=== PATIENT | female | born 1950 | race Caucasian/White ===

== ENCOUNTER 2019-07-07 06:53 | Emergency (ER) | payer MEDICARE, BC ==
[2019-07-07] MEDS ORDERED: Acetaminophen TAB* 325 MG PO ONE (07:27)
--- OUTSIDE RECORDS SUMMARY | 2019-07-07 07:30 | XMS REPORT | Summary of Care ---
:1950 Author Organization [facility] Address [address] [place] [address] Care Team Providers Name Role Phone Mary Berrios DO Primary Care Provider Julio Edmondson MD Unavailable Cristel Vasquez OD Unavailable Reason for Visit Reason Comments Transitional Care Management Encounter Details Date Type Department Care Team Description 06/16/2019 Office Visit Korey Flores Natalie, Chest pain, unspecified type (Primary Dx); Practice PA-C Urinary tract infection without hematuria, site unspecified; [address] [facility] [facility] [place] [address] [place] [address] [phone] Allergies Active Allergy Reactions Severity Noted Date Comments Acetasol Rash 08/28/2009 Alendronate Sodium Unknown Reaction 01/16/2011 Augmentin GI Reaction Medium 08/20/2010 diarrhea Calcium 01/31/2008 INTOL Captopril 01/31/2008 INTOL- CAPOTEN Ciprofloxacin Hcl 01/31/2008 ITCHING Codeine 01/31/2008 Jcppdufagt-Xneewpe-Mau-Hc 01/31/2008 SEDATION Eggs Or Egg-Derived GI Reaction 11/06/2013 Products Raloxifene Hydrochloride 01/31/2008 INTOL Food 01/31/2008 EGGS Fosamax 01/31/2008 Keflex Dermatologic Reaction 02/07/2013 rash and hives Latex Rash 11/06/2013 Wdfalyli-Dsflryglrs-Jsnnnpy Hives 01/31/2008 in Oxaprozin 01/31/2008 INTOL-daypro Premarin 01/31/2008 INTOL Sectral Unknown Reaction 01/16/2011 Sulfa Antibiotics 01/31/2008 documented as of this encounter (statuses as of 06/16/2019) Medications Medication Sig Dispensed Refills Start Date End Date Status NEURONTIN 300 MG Oral Take 300 mg by 0 Active Cap mouth HSX1. acetaminophen (TYLENOL Take 2 Tabs by 90 3 02/22/2009 Active ARTHRITIS PAIN) 650 MG mouth TWICE Oral Tab CRIndications: DAILY. Acute pharyngitis Ultra B-100 Complex Take 1 Tab by 50 5 04/02/2009 Active Oral Tab mouth DAILY. Multiple Take by mouth. 0 Active Vitamins-Minerals (MULTI FOR HER PO) Interferon Beta-1b Inject beneath 0 Active (BETASERON SC) the skin. diphenhydrAMINE Take 1 Cap by 56 Cap 0 05/02/2015 Active (BENADRYL) 25 MG Oral mouth EVERY SIX Cap HOURS NEEDED (itching). diazepam (VALIUM) 2 MG Take 2 mg by 0 Active Oral Tab mouth EVERY SIX HOURS NEEDED for anxiety. Glatiramer Acetate Inject beneath 0 Active (COPAXONE SC) the skin. oxybutynin (DITROPAN) 5 Take 1 Tab by 60 Tab 11 08/04/2018 Active MG Oral Tab mouth TWICE DAILY. SUMAtriptan Succinate Inject 6 mg 1 Syringe 3 12/22/2018 Active Refill 6 MG/0.5ML beneath the Subcutaneous Solution skin NEEDED CartridgeIndications: (migraine). Migraine without aura and without status migrainosus, not intractable bisoprolol-hydrochlorot Take 1 Tab by 90 Tab 1 01/23/2019 Active hiazide (ZIAC) 2.5-6.25 mouth DAILY. MG Oral TabIndications: Essential hypertension potassium chloride Take 1 Cap by 60 Cap 5 02/10/2019 Active (MICRO-K) 10 MEQ Oral mouth DAILY. Cap CR CLARITIN-D 24 HOUR Take 1 Tab by 30 Tab 5 05/17/2019 Active 10-240 MG Oral TABLET mouth DAILY. SR 24 HR cefuroxime (CEFTIN) 250 Take 1 Tab by 28 Tab 0 06/13/2019 06/18/2019 Active MG Oral TabIndications: mouth TWICE Urinary tract infection DAILY for 5 with hematuria, site days. unspecified documented as of this encounter (statuses as of 06/16/2019) Active Problems Problem Noted Date Dry eye syndrome of bilateral lacrimal glands 03/20/2019 Mixed type age-related cataract, both eyes 03/16/2017 Posterior vitreous detachment of both eyes 03/16/2017 Astigmatism of both eyes with presbyopia 03/16/2017 Multiple sclerosis 03/16/2017 Lattice degeneration of both retinas 03/16/2017 Migraine without aura and without status migrainosus, not intractable 2016 Essential hypertension 08/14/2015 Frequency of urination and polyuria 11/06/2013 Right leg pain 03/16/2013 Aortic regurgitation 09/15/2012 Overview: Mild, echo 09/12 BMI 32.0-32.9,adult 07/20/2012 Osteopenia 02/22/2009 Diverticulosis 02/27/2008 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 \\ Irritable bladder HBP (high blood pressure) MS (multiple sclerosis) Allergic rhinitis Renal insufficiency documented as of this encounter (statuses as of 06/16/2019) Resolved Problems Problem Noted Date Resolved Date Hematuria, Unspecified 11/07/2007 02/27/2008 Personal history of colonic polyps 03/31/2007 02/27/2008 Diverticulitis of colon with hemorrhage 02/27/2008 documented as of this encounter (statuses as of 06/16/2019) Immunizations Name Administration Dates Next Due PNEUMOCOCCAL POLYSACCHARIDE VACCINE 05/21/2019 TDAP Vaccine 03/04/2010 TETANUS & DIPHTHERIA TOXOID (OVER 7 YRS) 08/07/1999 documented as of this encounter Social History Tobacco Use Types Packs/Day Years Used Date Never Smoker Smokeless Tobacco: Never Used Alcohol Use Drinks/Week oz/Week Comments No Social Isolation Answer Date Recorded In a typical week, how many times do you More than three times a week 2018 talk on the phone with family, friends, or neighbors? How often do you get together with friends More than three times a week 11/16 or relatives? How often do you attend sabianist or Never 11/16/2018 scientologist services? Do you belong to any clubs or No 11/16/2018 organizations such as sabianist groups, unions, fraternal or athletic groups, or school groups? How often do you attend meetings of the Never 11/16/2018 clubs or organizations you belong to? Are you now , , , 11/16/2018 , never or living with a partner? Physical Activity Answer Date Recorded On average, how many days per week do you engage in moderate to 0 days 2018 strenuous exercise (like walking fast, running, jogging, dancing, swimming, biking, or other activities that cause a light or heavy sweat)? On average, how many minutes do you engage in exercise at this 0 min 2018 level? Stress Answer Date Recorded Do you feel stress - tense, restless, nervous, or anxious, Not at all 2018 or unable to sleep at night because your mind is troubled all the time - these days? Education Answer Date Recorded What is the highest level of school you have Some college, no degree 2018 completed or the highest degree you have received? Financial Resource Strain Answer Date Recorded How hard is it for you to pay for the very basics like Not hard at all 2018 food, housing, medical care, and heating? Intimate Partner Violence Answer Date Recorded Within the last year, have you been afraid of your partner or No 11/16/2018 ex-partner? Within the last year, have you been humiliated or emotionally No 11/16/2018 abused in other ways by your partner or ex-partner? Within the last year, have you been kicked, hit, slapped, or No 11/16/2018 otherwise physically hurt by your partner or ex-partner? Within the last year, have you been raped or forced to have any No 11/16/2018 kind of sexual activity by your partner or ex-partner? Food Insecurity Answer Date Recorded Within the past 12 months, you worried that your food would Never true 2018 run out before you got money to buy more. Within the past 12 months, the food you bought just didn't Never true 2018 last and you didn't have money to get more. Transportation Needs Answer Date Recorded In the past 12 months, has lack of transportation kept you from Yes 2018 medical appointments or from getting medications? In the past 12 months, has lack of transportation kept you from Yes 2018 meetings, work, or getting things needed for daily living? Sex Assigned at Date Recorded Not on file Job Start Date Occupation Industry Not on file Not on file Not on file Travel History Travel Start Travel End No recent travel history available. documented as of this encounter Last Filed Vital Signs Vital Sign Reading Time Taken Comments Blood Pressure 142/80 06/16/2019 11:02 AM EDT Pulse 71 06/16/2019 11:02 AM EDT Temperature 36.2 06/16/2019 11:02 AM EDT C (97.1 F) Respiratory Rate - - Oxygen Saturation 99% 06/16/2019 11:02 AM EDT Inhaled Oxygen Concentration - - Weight 69.2 kg (152 lb 9.6 oz) 06/16/2019 11:02 AM EDT Height - - Body Mass Index 29.8 06/02/2018 2:20 PM EDT documented in this encounter Progress Notes Natalie Flores PA-C - 06/16/2019 10:50 AM EDT PATIENT: Anushka Norris : 1950 DATE OF SERVICE: 06/16/2019 CHIEF COMPLAINT: Chief Complaint Patient presents with Transitional Care Management Subjective HISTORY OF PRESENT ILLNESS: Anushka Norris is a 68-y.o. female. Patient presents to the office for hospital follow up. She is accompanied by her son. Patient presented to the ER 06/11/19 with chest pain that developed that day. It was all around her chest. Patient was admitted for serial troponin's and stress imaging, all which came back negative. Chest pain resolved. She was incidentally noted to have a UTI and discharged on Ceftin. She denies any symptoms. This is her 3 rd episode of chest pain or left shoulder pain in 1 month. No cause has been determined. Pain comes randomly. No triggers. No modifying factors. No associated symptoms. Pain selfresolves. Patient's son is requesting a MOLST form be completed today. TCM Statement. Review of the hospitalization: I am seeing for transition of care following hospitalization. The date of discharge was: 06/12/19 The discharge diagnosis was Chest pain. I reviewed the discharge summary, discharge instructions, and pertinent additional documentation obtained during hospitalization. I reconciled the medications. I also reviewed the Transition of Care documentation done by staff. The tests that were not available at the time of discharge were reviewed. Additional tests which are not yet available include: none Coordination of care. - I am satisfied that appropriate referrals are in place to deal with the problems identified during hospitalization, and that the patient has adequate community resources and support in place. - Additional testing related to hospitilization was requested today: yes See orders. I confirmed the patient's understanding of the diagnosis and plan of care. Specific education that was provided today: There are no Patient Instructions on file for this visit. 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 Diabetes Mother Heart Mother PACER Glaucoma Mother Cancer Father prostate Respiratory Father COPD Asthma Brother Allergies Brother Arthritis Brother Cancer Paternal Grandmother COLON Glaucoma Maternal Grandmother No Known Problems Son No Known Problems Brother Current Outpatient Medications Medication Sig acetaminophen (TYLENOL ARTHRITIS PAIN) 650 MG Oral Tab CR Take 2 Tabs by mouth TWICE DAILY. bisoprolol-hydrochlorothiazide (ZIAC) 2.5-6.25 MG Oral Tab Take 1 Tab by mouth DAILY. cefuroxime (CEFTIN) 250 MG Oral Tab Take 1 Tab by mouth TWICE DAILY for 5 days. CLARITIN-D 24 HOUR 10-240 MG Oral TABLET SR 24 HR Take 1 Tab by mouth DAILY. diazepam (VALIUM) 2 MG Oral Tab Take 2 mg by mouth EVERY SIX HOURS NEEDED for anxiety. diphenhydrAMINE (BENADRYL) 25 MG Oral Cap Take 1 Cap by mouth EVERY SIX HOURS NEEDED (itching). Glatiramer Acetate (COPAXONE SC) Inject beneath the skin. Interferon Beta-1b (BETASERON SC) Inject beneath the skin. Multiple Vitamins-Minerals (MULTI FOR HER PO) Take by mouth. NEURONTIN 300 MG Oral Cap Take 300 mg by mouth HSX1. oxybutynin (DITROPAN) 5 MG Oral Tab Take 1 Tab by mouth TWICE DAILY. potassium chloride (MICRO-K) 10 MEQ Oral Cap CR Take 1 Cap by mouth DAILY. SUMAtriptan Succinate Refill 6 MG/0.5ML Subcutaneous Solution Cartridge Inject 6 mg beneath the skin NEEDED (migraine). Ultra B-100 Complex Oral Tab Take 1 Tab by mouth DAILY. No current facility-administered medications for this visit. Allergies Allergen Reactions Augmentin GI Reaction diarrhea Acetasol Rash Alendronate Sodium Unknown Reaction Calcium INTOL Captopril INTOL- CAPOTEN Cipro Cystitis [Ciprofloxacin Hcl] ITCHING Codeine Cortisporin [Heryyovjtx-Lyhecvw-Ftp-Hc] SEDATION Eggs Or Egg-Derived Products GI Reaction Evista [Raloxifene Hydrochloride] INTOL Food EGGS Fosamax Keflex Dermatologic Reaction rash and hives Latex Rash Neosporin [Ficqdkvu-Qolfnwvngf-Rhnaajvgt] Hives Oxaprozin INTOL-daypro Premarin INTOL Sectral Unknown Reaction Sulfa Antibiotics Social History Socioeconomic History Marital status: Spouse name: Not on file Number of children: 1 Years of education: Not on file Highest education level: Some college, no degree Occupational History Not on file Social Needs Financial resource strain: Not hard at all Food insecurity: Worry: Never true Inability: Never true Transportation needs: Medical: Yes Non-medical: Yes Tobacco Use Smoking status: Never Smoker Smokeless tobacco: Never Used Substance and Sexual Activity Alcohol use: No Drug use: No Sexual activity: Not Currently Lifestyle Physical activity: Days per week: 0 days Minutes per session: 0 min Stress: Not at all Relationships Social connections: Talks on phone: More than three times a week Gets together: More than three times a week Attends scientologist service: Never Active member of club or organization: No Attends meetings of clubs or organizations: Never Relationship status: Intimate partner violence: Fear of current or ex partner: No Emotionally abused: No Physically abused: No Forced sexual activity: No Other Topics Concern Back Care Not Asked Bike Helmet Not Asked Blood Transfusions Not Asked Caffeine Concern Not Asked Exercise Not Asked Hobby Hazards Not Asked International Travel Not Asked Service Not Asked Occupational Exposure Not Asked Seat Belt Not Asked Self-Exams Not Asked Sleep Concern Not Asked Special Diet Not Asked Stress Concern Not Asked Weight Concern Not Asked Social History Narrative , 1 son Education: high school plus 1 yr college Transportation: independent Lives alone, next door to son Exercise: none due to balance issues r/t MS Denies any financial concerns r/t food, [facility], clothing, utilities REVIEW OF SYSTEMS: Review of Systems Constitutional: Negative for diaphoresis and fever. Respiratory: Negative for cough and shortness of breath. Cardiovascular: Negative for chest pain and palpitations. Gastrointestinal: Negative for abdominal pain, nausea and vomiting. Genitourinary: Negative for dysuria and frequency. Patient with chronic incontinence due to MS Musculoskeletal: Positive for joint pain (left arm pain at times). Neurological: Negative for dizziness and headaches. Objective PHYSICAL EXAM: VITALS: BP 142/80 | Pulse 71 | Temp 97.1 F (36.2 C) | Wt 152 lb 9.6 oz (69.2 kg) | KzV118% | BMI 29.80 kg/m Body mass index is 29.8 kg/m. Physical Exam Constitutional: She appears well-developed and well-nourished. No distress. HENT: Head: Normocephalic and atraumatic. Cardiovascular: Normal rate, regular rhythm and normal heart sounds. Pulmonary/Chest: Effort normal and breath sounds normal. She exhibits no tenderness and no bony tenderness. Abdominal: Soft. Normal appearance and bowel sounds are normal. She exhibits no distension and no mass. There is no hepatosplenomegaly. There is no tenderness. There is no rigidity, no rebound, no guarding and no CVA tenderness. Musculoskeletal: Left shoulder: She exhibits no tenderness, no bony tenderness and no pain. ASSESSMENT / IMPRESSION: ICD-9-CM ICD-10-CM 1. Chest pain, unspecified type 786.50 R07.9 2. Urinary tract infection without hematuria, site unspecified 599.0 N39.0 URINALYSIS (LAB) WITH REFLEX CULTURE 3. Acute pain of left shoulder 719.41 M25.512 XR SHOULDER MIN 2 VIEWS LEFT ( STANDARD) Plan -Chest pain is not cardiac. Will obtain xray of shoulder given complaints of shoulder pain to assess for other causes. -Complete antibiotic. Repeat urine in 1 week given lack of symptoms due to MS. Patient has appointment with urology in 08/2019 already. -MOLST completed with patient, son, myself, and Hanna Lopez RN. Health care proxy form also provided per patient/ son request. -Follow up with PCP per routine, sooner as needed. Author: Natalie Flores PA-C 06/16/2019 13:29 documented in this encounter Plan of Treatment Date Type Specialty Care Team Description 06/16/2019 Ancillary Procedure Radiology 06/19/2019 Hospital Encounter Radiology Outpatient 08/08/2019 Office Visit Urology Julio Edmondson MD [address] [place] [address] [phone] 08/14/2019 Office Visit Family Practice Mary Berrios DO [address] [place] [address] [phone] 03/21/2020 Ocular Visit Optometry Cristel Vasquez, OD [address] [place] [address] Name Type Priority Associated Diagnoses Order Schedule URINALYSIS (LAB) WITH Lab Routine Urinary tract infection Expected: 2018 REFLEX CULTURE without hematuria, site (Approximate), unspecified Expires: 12/13/2019 XR SHOULDER MIN 2 VIEWS Imaging Routine Acute pain of left Expected: 2018, LEFT (STANDARD) shoulder Expires: 06/15/2020 Health Maintenance Due Date Last Done Comments ZOSTER IMMUNIZATION SERIES 2002 (1 of 2) MAMMOGRAM (SCREENING) 06/16/2019 06/16/2018, 06/14/2017, 06/11/2016, Additional history exists FALL RISK ASSESSMENT 01/11/2020 01/10/2019, 01/10/2019 DEPRESSION SCREENING 05/19/2020 05/19/2019, 03/01/2018 DIABETES SCREENING 05/19/2020 05/19/2019, 02/02/2019, 02/15/2018, Additional history exists LIPID DISORDER SCREENING 05/19/2020 05/19/2019, 02/02/2019, 02/15/2018, Additional history exists COLONOSCOPY SCREENING 09/14/2022 09/14/2012, 04/06/2007 OSTEOPOROSIS SCREENING 02/19/2025 02/19/2015, 03/17/2011, 04/09/2009 HPV IMMUNIZATION SERIES Aged Out No longer eligible based on patient's age to complete this topic MENINGOCOCCAL VACCINE IMM Aged Out No longer eligible based on patient's age to complete this topic documented as of this encounter Goals Goal Patient Goal Associated Recent Patient-Stated? Author Type Problems Progress Blood Pressure Blood Pressure 142/80 No Pedro, < 140/90 (06/16/2019 DO Mundo 11:02 AM EDT) Note: This is an individualized treatment (blood pressure) goal for Anushka Norris: Displayed above (on the left) is your goal for blood pressure control. Your most recent blood pressure is also shown above, on the right. You should try to achieve blood pressures that are lower than your goal listed above (on the left). Weight loss vs. 18 mo Lifestyle 8.5 (06/16/2019 11:02 AM No Mundo Vasquez DO max (lbs) >= 10 EDT) Note: This is an individualized lifestyle goal for Anushka Norris: Your body mass index (BMI) is more than 30. You should lose weight. A reasonable starting goal is to lose 10 pounds. Displayed above is how many pounds you have lost thus far towards your 10 pound weight loss goal. Take all prescribed medications as Self-management No Mundo Vasquez DO directed Note: This is an individualized self-management goal for Anushka Norris: Please take all prescribed medications as directed. 1. Do not skip doses. If you cannot afford your medications, talk with your doctor. 2. Use a pill reminder system such as a pill box if needed. Your pharmacist can help you with this. 3. Contact your Pharmacy 5 days before your medication runs out. If you cannot take your medications for any reasons, talk with your doctor. 4. Please bring all of your medication bottles and inhalers (or a list of all your medications/inhalers) with you to every visit. Potential barriers to meeting all of your care plan goals will continue to be addressed on an ongoing basis. documented as of this encounter Results Not on filedocumented in this encounter Visit Diagnoses Diagnosis Chest pain, unspecified type - Primary Urinary tract infection without hematuria, site unspecified Acute pain of left shoulder documented in this encounter Insurance Payer Benefit Plan / Subscriber ID Effective Dates Phone Address Type Group MEDICARE MEDICARE PART A & xxxxxxxxxxx 2017-Present Medicare B [employer] xxxxxxxxxxxx 2017-Present [employer] Guarantor Name Account Type Relation to Date of Phone Billing Patient Address Anushka Norris Personal/Family 1950 [address] (Home) [place], [place] [phone] (Work) documented as of this encounter Advance Directives Code Status Date Activated Date Inactivated Comments Full Code 11/06/2013 4:58 AM 11/08/2013 7:10 PM"
--- OUTSIDE RECORDS SUMMARY | 2019-07-07 07:30 | XMS REPORT | Summary of Care ---
:1950 Author Organization [facility] Address [address] [facility] [place] [address] Care Team Providers Name Role Phone Mary Berrios DO Primary Care Provider Julio Edmondson MD Unavailable Cristel Vasquez OD Unavailable Encounter Details Date Type Department Care Team Description 06/19/2019 Hospital Encounter [facility] Outpatient [address] [email or web address] [address] Allergies Active Allergy Reactions Severity Noted Date Comments Acetasol Rash 08/28/2009 Alendronate Sodium Unknown Reaction 01/16/2011 Augmentin GI Reaction Medium 08/20/2010 diarrhea Calcium 01/31/2008 INTOL Captopril 01/31/2008 INTOL- CAPOTEN Ciprofloxacin Hcl 01/31/2008 ITCHING Codeine 01/31/2008 Mqqrhjrjjg-Rjqvjxq-Duq-Hc 01/31/2008 SEDATION Eggs Or Egg-Derived GI Reaction 11/06/2013 Products Raloxifene Hydrochloride 01/31/2008 INTOL Food 01/31/2008 EGGS Fosamax 01/31/2008 Keflex Dermatologic Reaction 02/07/2013 rash and hives Latex Rash 11/06/2013 Mslfhkhb-Yogigfnmlr-Wxqkaoa Hives 01/31/2008 in Oxaprozin 01/31/2008 INTOL-daypro Premarin 01/31/2008 INTOL Sectral Unknown Reaction 01/16/2011 Sulfa Antibiotics 01/31/2008 documented as of this encounter (statuses as of 06/21/2019) Medications Medication Sig Dispensed Refills Start Date End Date Status NEURONTIN 300 MG Oral Take 300 mg by 0 Active Cap mouth HSX1. acetaminophen (TYLENOL Take 2 Tabs by 90 3 02/22/2009 Active ARTHRITIS PAIN) 650 MG mouth TWICE Oral Tab CRIndications: DAILY. Acute pharyngitis Ultra B-100 Complex Oral Take 1 Tab by 50 5 04/02/2009 Active Tab mouth DAILY. Multiple Take by mouth. [...] 12/22/2018 Active Refill 6 MG/0.5ML beneath the skin Subcutaneous Solution NEEDED CartridgeIndications: (migraine). Migraine without aura and without status migrainosus, not intractable bisoprolol-hydrochloroth Take 1 Tab by 90 Tab 1 01/23/2019 Active iazide (ZIAC) 2.5-6.25 mouth DAILY. MG Oral TabIndications: Essential hypertension potassium chloride Take 1 Cap by 60 Cap 5 02/10/2019 Active (MICRO-K) 10 MEQ Oral mouth DAILY. Cap CR CLARITIN-D 24 HOUR Take 1 Tab by 30 Tab 5 05/17/2019 Active 10-240 MG Oral TABLET SR mouth DAILY. 24 HR documented as of this encounter (statuses as of 06/21/2019) Active Problems Problem Noted Date Dry eye [...] as of this encounter (statuses as of 06/21/2019) Resolved Problems Problem Noted Date Resolved Date Hematuria, Unspecified 11/07/2007 02/27/2008 Personal history of colonic polyps 03/31/2007 02/27/2008 Diverticulitis of colon with hemorrhage 02/27/2008 documented as of this encounter (statuses as of 06/21/2019) Immunizations Name Administration Dates Next Due PNEUMOCOCCAL [...] or relatives? How often do you attend congregational or Never 11/16/2018 adventist services? Do you belong to any clubs or No 11/16/2018 organizations such as congregational groups, unions, fraternal or athletic groups, or [...] of this encounter Last Filed Vital Signs Not on filedocumented in this encounter Plan of Treatment Date Type Specialty Care Team Description 08/08/2019 Office Visit Urology Julio Edmondson MD [address] [place] [address] [phone] 08/14/2019 Office Visit Family Practice Mary Berrios DO [address] [place] [id number] 03/21/2020 Ocular Visit Optometry Cristel Vasquez, OD [address] [place] [address] [phone] Health Maintenance Due Date Last Done Comments ZOSTER IMMUNIZATION SERIES 2002 (1 of 2) FALL RISK ASSESSMENT 01/11/2020 01/10/2019, 01/10/2019 DEPRESSION SCREENING 05/19/2020 05/19/2019, 03/01/2018 DIABETES SCREENING 05/19/2020 05/19/2019, 02/02/2019, 02/15/2018, Additional history exists LIPID DISORDER SCREENING 05/19/2020 05/19/2019, 02/02/2019, 02/15/2018, Additional history exists MAMMOGRAM (SCREENING) 06/19/2020 06/19/2019, 06/16/2018, 06/14/2017, Additional history exists COLONOSCOPY SCREENING 09/14/2022 09/14/2012, [...] is an individualized lifestyle goal for Anushka Amina Myrna: Your body mass index (BMI) is more than 30. You should lose weight. A reasonable starting goal is to lose 10 pounds. Displayed above is how many pounds you have lost thus far towards your 10 pound weight loss goal. Take all prescribed medications as Self-management Mundo Collazo , DO directed Note: This is an individualized [...] ongoing basis. documented as of this encounter Procedures Procedure Name Priority Date/Time Associated Diagnosis Comments MAMMO DIGITAL Routine 06/19/2019 9:22 AM Screening mammogram, Results for this SCREEN BILATERAL EDT encounter for procedure are in the results section. documented in this encounter Results MAMMO DIGITAL SCREEN BILATERAL (06/19/2019 9:22 AM EDT) Specimen Impressions Performed At Negative. No mammographic evidence of malignancy. BI-RADS Assessment: Category 1: Negative. Management Recommendation: Routine annual screening mammography per ACR and SBI guidelines. Signed by Jeni Sheffield MD on 06/19/2019 12:05 PM Narrative Performed At Procedure(s): MAMMO DIGITAL SCREEN BILATERAL Date of service: 06/19/2019 8:47 AM Provided clinical information: 68 years, Female, "screen". Procedure and materials: Standard bilateral CC and MLO full-field digital mammograms were obtained. Images were analyzed by a CAD system. Suboptimal positioning due to patient body habitus. Images obtained are best possible. Comparison studies: Comparison is made to available prior exams. Most recent clinical breast exam: No recent. Observations: Breast composition: b. There are scattered areas of fibroglandular density. Mass: None. Calcifications: No suspicious calcifications. Architectural Distortion: None. Asymmetries: None. Other pertinent findings: None. Procedure Note Interface, Rad Results - 06/19/2019 12:07 PM EDT Procedure(s): MAMMO DIGITAL SCREEN BILATERAL Date of service: 06/19/2019 8:47 AM Provided clinical information: 68 years, Female, "screen". Procedure and materials: Standard bilateral CC and MLO full-field digital mammograms were obtained. Images were analyzed by a CAD system. Suboptimal positioning due to patient body habitus. Images obtained are best possible. Comparison studies: Comparison is made to available prior exams. Most recent clinical breast exam: No recent. Observations: Breast composition: b. There are scattered areas of fibroglandular density. Mass: None. Calcifications: No suspicious calcifications. Architectural Distortion: None. Asymmetries: None. Other pertinent findings: None. IMPRESSION Negative. No mammographic evidence of malignancy. BI-RADS Assessment: Category 1: Negative. Management Recommendation: Routine annual screening mammography per ACR and SBI guidelines. Signed by Jeni Sheffield MD on 06/19/2019 12:05 PM documented in this encounter Visit Diagnoses Diagnosis Screening mammogram, encounter for documented in this encounter Insurance Payer Benefit Plan / Subscriber ID Effective Dates Phone Address Type Group MEDICARE MEDICARE PART A & xxxxxxxxxxx 2017-Present Medicare B [employer] xxxxxxxxxxxx 2017-Present [employer] Guarantor Name Account Type Relation to Date of Phone Billing Patient Address Anushka Norris Personal/Family 1950 [address] (Home) [place], [place] [phone] (Work) documented as of this encounter Advance Directives Code Status Date Activated Date Inactivated Comments Full Code 11/06/2013 4:58 AM 11/08/2013 7:10 PM
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
--- NOTE | 2019-07-07 07:43 | ED ---
Complex/Multi-Sys Presentation - HPI Summary HPI Summary: Pt. is a 68 y.o female who presents to the ER c/o left sided pain. Pt. notes she has a hx of MS and follows with a neurologist in [place]. Pt. currently on Interferon and Glatramer. Pt. states she got up early today and took a shower and was on the computer waiting for her hair to dry when she developed diffuse pain to the left side of her body. Pt. states this is not uncommon pain for her to have. Pt. was concerned pain may be related to her heart and presents for evaluation. Pt. denies chest pain/pressure, sob, headache, abd. pain, V/D, urinary sxs, numbness, tingling or weakness. Pt. notes tylenol usually helps with her pain but has not taken any yet today. Sxs are moderate in severity. No current modifying factors. Pt. denies falls or injuries. no hx of HLD, HTN, smoking. Pt. notes family hx of heart disease. - History Of Current Complaint Chief Complaint: EDGeneral Time Seen by Provider: 07/07/19 07:01 Hx Obtained From: Patient - Allergies/Home Medications Allergies/Adverse Reactions: Allergies Allergy/AdvReac Type Severity Reaction Status Date / Time MS Bacitracin [Bacitracin] Allergy Intermediate Rash Verified 03/17/16 20:15 MS Calcium [Calcium] Allergy Unknown Verified 03/17/16 20:27 Reaction Details MS Captopril [Captopril] Allergy Unknown Verified 03/17/16 20:18 Reaction Details MS Ciprofloxacin Allergy Unknown Verified 03/17/16 20:18 [Ciprofloxacin] Reaction Details MS Clavulanic Acid Allergy Unknown Verified 03/17/16 20:18 [Clavulanic Acid] Reaction Details MS Latex [Latex] Allergy Unknown Verified 03/18/16 00:13 Reaction Details MS Morphine [Morphine] Allergy Unknown Verified 03/17/16 20:15 Reaction Details MS Neomycin [Neomycin] Allergy Unknown Verified 03/17/16 20:16 Reaction Details MS Oxaprozin [Oxaprozin] Allergy Unknown Verified 03/17/16 20:21 Reaction Details MS Penicillins [PCN] Allergy Hives Verified 03/17/16 20:12 MS Polymyxin B [Polymyxin B] Allergy Unknown Verified 03/17/16 20:17 Reaction Details MS Codeine [Codeine] AdvReac Rash Verified 03/17/16 20:15 PMH/Surg Hx/FS Hx/Imm Hx Cardiovascular History: Reports: Hx Hypertension GI History: Reports: Hx Diverticulosis Neurological History: Reports: Other Neuro Impairments/Disorders - MULTIIPLE SCLEROSIS - Surgical History Surgery Procedure, Year, and Place: L ear sx, Tonsils, wisdome teeth, pinched nerve in R foot, appendectomy, csection, hernia surgeryx2, d&c, r breast biopsy , bladder biopsy Infectious Disease History: No Infectious Disease History: Denies: Traveled Outside the [place] in Last 30 Days - Family History Known Family History: Positive: Unknown, Non-Contributory - Social History Occupation: Retired Lives: With Family Alcohol Use: None Hx Substance Use: No Substance Use Type: Reports: None Hx Tobacco Use: No Smoking Status (MU): Never Smoked Tobacco Review of Systems Constitutional: Negative Negative: Fever, Chills Eyes: Negative ENT: Negative Cardiovascular: Negative Negative: Palpitations, Chest Pain Respiratory: Negative Negative: Shortness Of Breath, Cough Gastrointestinal: Negative Negative: Abdominal Pain, Vomiting, Diarrhea Genitourinary: Negative Negative: dysuria Positive: Other - left sided pain Skin: Negative Neurological: Negative Negative: Headache, Weakness, Paresthesia, Numbness, Slurred Speech All Other Systems Reviewed And Are Negative: Yes Physical Exam Triage Information Reviewed: Yes Vital Signs On Initial Exam: Initial Vitals Temp Pulse Resp BP Pulse Ox 96.9 F 78 16 138/89 98 07/07/19 06:57 07/07/19 06:57 07/07/19 06:57 07/07/19 06:57 07/07/19 06:57 Vital Signs Reviewed: Yes Appearance: Positive: Well-Appearing - Pt. sitting up in bed in NAD. Pleasant. Skin: Positive: Warm, Dry Head/Face: Positive: Normal Head/Face Inspection Eyes: Positive: Normal, EOMI, BELÉN Neck: Positive: Supple Respiratory/Lung Sounds: Positive: Clear to Auscultation, Breath Sounds Present Cardiovascular: Positive: Normal, RRR Musculoskeletal: Positive: Normal, Strength/ROM Intact - 5/5 strength in bilateral UEs and LEs. Neurological: Positive: Normal, Alert, Oriented to Person Place, Time, CN Intact II-III Psychiatric: Positive: Affect/Mood Appropriate Diagnostics - Vital Signs Vital Signs Temp Pulse Resp BP Pulse Ox 07/07/19 07:40 99 07/07/19 07:30 70 20 141/83 98 07/07/19 07:01 76 18 100 07/07/19 07:00 82 17 140/88 98 07/07/19 06:59 82 15 90 07/07/19 06:57 96.9 F 78 16 138/89 98 - Laboratory Result Diagrams: 07/07/19 07:40 07/07/19 07:40 Lab Statement: Any lab studies that have been ordered have been reviewed, and results considered in the medical decision making process. Complex Multi-Symp Course/Dx Course Of Treatment: Pt. presenting with left sided body pain diffusely. No neuro deficits. Afebrile pt. given a dose of tylenol for pain. ECG done at 706 shows a sinus rhythm of 64 bpm, normal axis, PVCs, no ST elevation. Blood work and cxr unremarkable. Pt. reassured. Wll be dc home to [facility] with pcp. To return to er if sxs change or worsen. pt. understands and agrees with plan. - Diagnoses Provider Diagnoses: Pain Discharge ED - Sign-Out/Discharge Documenting (check all that apply): Patient Departure Patient Received Moderate/Deep Sedation with Procedure: No - Discharge Plan Condition: Improved Disposition: HOME Patient Education Materials: Chest Pain (ED) Referrals: Mundo Vasquez DO [Primary Care Provider] - Additional Instructions: Follow up with your PCP in 3 days Continue home medications as directed Return to ER if symptoms change or worsen - Billing Disposition and Condition Condition: IMPROVED Disposition: Home
[2019-07-07 07:48] LABS: ABS Eosinophils 0.3 10^3/ul (0-0.6); ABS Lymphocytes 1.4 10^3/ul (1.0-4.8); ABS Monocytes 0.5 10^3/ul (0-0.8); ABS Neutrophils 2.9 10^3/ul (1.5-7.7); Eosinophil % 5.7 %; Hematocrit 40 % (35-47); Hemoglobin 13.5 g/dL (12.0-16.0); Lymphocyte % 27.4 %; Mean Corpuscular HGB Conc 34 g/dL (31-36); Mean Corpuscular Hemoglobin 30 pg (27-31); Mean Corpuscular Volume 89 fL (80-97); Mean Platelet Volume 9.7 fL (7.4-10.4); Platelet Count 185 10^3/uL (150-450); Red Blood Count 4.53 10^6 /uL (3.70-4.87); Red Cell Distribution Width 13 % (10-15); White Blood Count 5.1 10^3/uL (3.5-10.8)
[2019-07-07 07:56] LABS: Activated Partial Thrombo Time 53.5 seconds (26.0-38.0); INR 0.95 (0.82-1.09)
[2019-07-07 08:06] LABS: Albumin 3.4 g/dL (3.2-5.2); Albumin/Globulin Ratio 1.4 (1-3); BUN/Creatinine Ratio 15.7 (8-20); EGFR African American 76.8 (>60); EGFR Non-African American 63.5 (>60); Globulin 2.4 g/dL (2-4); Potassium 3.9 mmol/L (3.5-5.0); Total Bilirubin 0.6 mg/dL (0.2-1.0); Total Protein 5.8 g/dL (6.4-8.9)
[2019-07-07 09:15] VITALS: BP 153/98
== END 2019-07-07 09:17 | disposition home or self-care (01) ==
LOC: ED 06:53
DX: R52 Pain, unspecified (principal); E78.00 Pure hypercholesterolemia, unspecified; K57.90 Diverticulosis of intestine, part unspecified, without perforation or abscess without bleeding; I10 Essential (primary) hypertension; G35 Multiple sclerosis; Z79.899 Other long term (current) drug therapy; Z88.5 Allergy status to narcotic agent; Z88.0 Allergy status to penicillin; Z88.8 Allergy status to other drugs, medicaments and biological substances; Z88.1 Allergy status to other antibiotic agents; Z91.040 Latex allergy status
CPT/HCPCS: 36415; 71045; 80053; 83605; 83735; 84484; 85025; 85610; 85730; 93005; 99283; A9270-GY